=== PATIENT | female | born 1955 | race Caucasian/White ===

== ENCOUNTER 2022-10-18 11:45 | Outpatient (CLI) | payer MEDICARE | END 2022-10-18 11:46 | disposition home or self-care (01) | LOC: SCSRAD 11:45 | PROVIDERS: ATTEND Family Medicine Sports Medicine | DX: J90 Pleural effusion, not elsewhere classified (principal); R91.1 Solitary pulmonary nodule; R91.8 Other nonspecific abnormal finding of lung field; I10 Essential (primary) hypertension; E78.5 Hyperlipidemia, unspecified | CPT/HCPCS: 71046; 80053; 80061; 81001; 83036; 85025 ==